=== PATIENT | male | born 1960 | race Caucasian/White ===

== ENCOUNTER 2022-03-07 15:13 | Outpatient (CLI) | payer OTHER, SELFPAY ==
[2022-03-07 14:19] LABS: PSA Screen* 0.88 ng/mL (0.10-4.00)
== END 2022-03-07 15:14 | disposition home or self-care (01) ==
PROVIDERS: PCP Family Medicine; Visit Provider Physician Assistant Medical
DX: Z00.00 Encounter for general adult medical examination without abnormal findings (principal); Z12.5 Encounter for screening for malignant neoplasm of prostate
CPT/HCPCS: 84153

== ENCOUNTER 2022-09-06 08:46 | Outpatient (CLI) | payer OTHER, SELFPAY ==
[2022-09-06 13:36] LABS: Albumin* 4.3 g/dL (3.3-5.0)
[2022-09-06 13:37] LABS: Chloride* 103 mmol/L (96-114); Potassium* 3.7 mmol/L (3.6-5.1); Sodium* 139 mmol/L (135-149)
[2022-09-06 13:39] LABS: Aspartate Amino Transferase* 84 U/L (12-35); Carbon Dioxide* 27 mmol/L (20-32); Cholesterol* 145 mg/dL (90-199); Creatinine* 0.8 mg/dL (0.5-1.5); Estimated Glomerular Filt Rate 100 ml/min; Total Protein* 6.7 g/dL (6.0-8.3)
[2022-09-06 13:40] LABS: Alanine Aminotransferase* 81 U/L (4-50); Alkaline Phosphatase* 49 U/L (40-150); Blood Urea Nitrogen* 13 mg/dL (7-30); Calcium* 9.2 mg/dL (8.4-10.6); Glucose* 127 mg/dL (60-115); HDL Cholesterol* 37 mg/dL (>=40); LDL Cholesterol Calculated 57 mg/dL (<100); Triglycerides* 255 mg/dL (40-149)
[2022-09-06 13:58] LABS: Creatinine Urine 264.7 mg/dL
[2022-09-06 14:01] LABS: Microalbumin Creatinine Ratio 10 mg/g (0-30); Microalbumin Urine 4 mg/dL
== END 2022-09-06 08:47 | disposition home or self-care (01) ==
PROVIDERS: PCP Physician Assistant Medical; Visit Provider Physician Assistant Medical
DX: E11.9 Type 2 diabetes mellitus without complications (principal); E78.2 Mixed hyperlipidemia; I10 Essential (primary) hypertension; Z79.4 Long term (current) use of insulin
CPT/HCPCS: 80053; 80061; 82043; 82570

== ENCOUNTER 2023-05-14 08:04 | Outpatient (CLI) | payer OTHER, SELFPAY | END 2023-05-14 08:05 | disposition home or self-care (01) | LOC: NFLDREF 15:41 | PROVIDERS: PCP Physician Assistant Medical; Referring Provider Physician Assistant Medical; Visit Provider Physician Assistant Medical | DX: Z12.5 Encounter for screening for malignant neoplasm of prostate (principal); E11.9 Type 2 diabetes mellitus without complications; I10 Essential (primary) hypertension; Z79.4 Long term (current) use of insulin | CPT/HCPCS: G0103 ==

== ENCOUNTER 2023-08-10 12:55 | Outpatient (CLI) | payer OTHER, SELFPAY | END 2023-08-10 12:56 | disposition home or self-care (01) | LOC: NFLDREF 08-30 07:17 | PROVIDERS: PCP Physician Assistant Medical; Referring Provider Physician Assistant Medical; Visit Provider Physician Assistant Medical | DX: E11.9 Type 2 diabetes mellitus without complications (principal); E66.9 Obesity, unspecified; E78.2 Mixed hyperlipidemia; I10 Essential (primary) hypertension; F41.1 Generalized anxiety disorder; Z79.4 Long term (current) use of insulin | CPT/HCPCS: 80053; 80061; 82043; 82570; 84443 ==

== ENCOUNTER 2024-10-13 07:42 | Outpatient (CLI) | payer OTHER, SELFPAY | END 2024-10-13 07:43 | disposition home or self-care (01) | LOC: NFLDREF 16:51 | PROVIDERS: PCP Physician Assistant Medical; Referring Provider Physician Assistant Medical; Visit Provider Physician Assistant Medical | DX: I10 Essential (primary) hypertension (principal); E78.2 Mixed hyperlipidemia; E11.9 Type 2 diabetes mellitus without complications; R80.9 Proteinuria, unspecified; Z12.5 Encounter for screening for malignant neoplasm of prostate; F41.1 Generalized anxiety disorder; E66.811 Obesity, class 1; E66.09 Other obesity due to excess calories; Z68.34 Body mass index [BMI] 34.0-34.9, adult | CPT/HCPCS: 80053; 80061; 82043; 82570; 84443; G0103 ==